=== PATIENT | female | born 1965 | race Caucasian/White ===

== ENCOUNTER 2017-01-25 07:11 | Day surgery (SDC) | payer OTHER ==
[~2017-01-25] VITALS: Ht 157.5 cm; Wt 124.0 kg
[2017-01-25] VITALS (9 sets, daily range): BP systolic 115–156; BP diastolic 58–100; PULSE 80–132; RESP 15–24; O2SAT 93–97
[2017-01-25] MEDS: Lactated Ringer's 1,000 ML IV SCH ×3 (05:00→09:42)
[~2017-01-25 07:11] MED LIST: ADV100INH IH; CeFAZolin Inj 2 GM in IV Premix 1 EACH IV ONE; FLUT16SP NS; MEDR10TA PO; TRAZ-118 PO
[2017-01-25] MEDS ORDERED: Ondansetron 2 mg/mL 2 mL Inj ONE ×2 (07:12)
[2017-01-25] MEDS ORDERED: Rocuronium 10 mg/mL 5 mL Inj ONE ×2 (07:12)
[2017-01-25] MEDS ORDERED: Dexamethasone 4 mg/mL Inj ONE ×2 (07:12)
[2017-01-25] MEDS ORDERED: Propofol 10,000 mCg/mL 20 mL Inj ONE (07:12)
[2017-01-25] MEDS ORDERED: Propofol 10,000 mCg/mL 100 mL Inj ONE (07:12)
[2017-01-25] MEDS ORDERED: Remifentanil 1 mg/3 mL Inj ONE (07:12)
[2017-01-25] MEDS ORDERED: fentaNYL-PF 50 mCg/mL 2 mL Inj ONE (07:12)
[2017-01-25] MEDS ORDERED: Morphine PF 1 mg/mL 10 mL Inj ONE (07:12)
[2017-01-25] MEDS ORDERED: ALBU18HF INH (07:37)
[2017-01-25] MEDS ORDERED: CeFAZolin Inj 3 Gm/ D5W 50 mL Bag IV ONE (07:39)
[2017-01-25 08:13] LABS: BASOPHILS % (AUTO) 0.1 % (0-3); MONOCYTES % (AUTO) 5.6 % (4-12); Mean Corpuscular Hemoglobin 30.7 pg (27.0-35.0); Mean Corpuscular Volume 89.9 fL (81-100); NEUTROPHILS % (AUTO) 61.7 % (40-74); Platelet Count 264 bil/L (150-400)
[2017-01-25] MEDS ORDERED: Lidocaine 1%/Epi 1:100,000 30 mL MDV INFILTRATE ONE (10:00)
[2017-01-25] MEDS ORDERED: Lactated Ringer's 1,000 ML IV SCH (12:12)
[2017-01-25] MEDS ORDERED: Lactated Ringer's 500 ML IV PRN (12:12)
[2017-01-25] MEDS ORDERED: Phenylephrine 10,000 mCg/mL Inj IVPUSH PRN (12:15)
[2017-01-25] MEDS ORDERED: fentaNYL-PF 50 mCg/mL 2 mL Inj IVPUSH PRN (12:15)
[2017-01-25] MEDS ORDERED: Labetalol 5 mg/mL 4 mL Inj IV PRN (12:15)
[2017-01-25] MEDS ORDERED: EPHEDrine Sulfate 50 mg/mL Inj IVPUSH PRN (12:15)
[2017-01-25] MEDS ORDERED: Dexamethasone 4 mg/mL Inj IVPUSH PRN (12:15)
[2017-01-25] MEDS ORDERED: Atropine 0.4 mg/mL Inj IVPUSH PRN (12:15)
[2017-01-25] MEDS ORDERED: Ondansetron 2 mg/mL 2 mL Inj IVPUSH PRN ×2 (12:15→15:50)
[2017-01-25] MEDS ORDERED: HYDROmorphone 1 mg/mL Inj IVPUSH PRN (12:15)
[2017-01-25] MEDS ORDERED: MetoCLOpramide 5 mg/mL 2 mL Inj IVPUSH PRN (12:15)
--- NOTE | 2017-01-25 12:17 | PCM.HPANE ---
Patient Data Surgeon Admitting Provider: Attending Provider:India Hubbard MD Primary Care Physician:Kehinde Richardson MD Other Provider:[place] Anest[facility] Reason for Visit Abnormal Uterine Bleeding Ht/WT & BMI Height (Feet): 5 Height (Inches): 2.5 Weight (Kilograms): 123.3 Body Mass Index 48.00 Allergies Coded Allergies: No Known Allergies (Unverified Allergy, Unknown, 05/14/16) Past Anesthesia History Anesthesia History: Positive for:: Anesthesia Reactions (PONV), Denies:: Fam Anesthesia Reaction (grandmother had difficulty rousing), Fam Malignant Hypertherm, Malignant Hyperthermia Diabetes History Hx Diabetes?: No MRSA MRSA: No Medications Home Meds Incl Beta Opal: No Reported Medications Albuterol Sulfate (Ventolin HFA Inhaler)200 Puff/18 Gm Inhaler1 Puff INH Q4 PRN For Wheezing #1 INHALER Ref 0 01/25/17 Trazodone 100 Mg [id number] Mg PO HS Ref 0 01/24/17 Medroxyprogesterone Acetate (Provera)10 Mg Vfiypd82 Mg PO DAILY 01/24/17 Fluticasone Propionate (Fluticasone Propionate Nasal)16 Gm Mumford.susp1 Mumford NS BID #16 GM Ref 0 01/24/17 Fluticasone/Salmeterol (Advair 100-50 Diskus)60 Puffs/Inh Disk1 Puffs IH BID #1 DISK Ref 0 01/24/17 Discontinued Reported Medications Ibuprofen 600 Mg Ojqjxh589 Mg PO QID PRN For Pain Ref 0 05/14/16 Ferrous Sulfate, Dried (Iron)Unknown Strength Tablet.er159 Mg PO DAILY 05/14/16 Cetirizine Unknown Strength Tablet5 Mg PO HS PRN ALLERGIES Ref 0 05/14/16 Alprazolam (Xanax)0.5 Mg Tablet0.5 Mg PO TID PRN For Anxiety Ref 0 05/13/16 Fluticasone/Salmeterol (Advair 100-50 Diskus)60 Puffs/Inh Disk1 Puffs IH BID #1 DISK Ref 0 05/13/16 Discontinued Scripts Medroxyprogesterone 10 Mg Fluczq42 Mg PO DAILY #9 TABLET Prov:Anurag Guerrero S DO 05/02/16 History History of ENT Problems?: No HEENT History: Denies:: Cataracts Dysphagia Hearing Problem Sinus Problem Denture Type: None Teeth Condition: Within Normal Limits Hx of Heart Problems?: Yes Cardiovascular History: Positive for:: Irregular Heartbeat Denies:: Cardiac Surgery Chest Pain Congestive Heart Failure Edema Heart Murmur Hypertension Pacemaker Hx of Respiratory Problem?: Yes Respiratory History: Positive for:: Asthma (exercise induced) Use of C-PAP Machine Use of Inhalers / NEBS Denies:: COPD Emphysema Oxygen Administration Pneumonia Pulmonary Embolism Tuberculosis Hx Neurologic Problems?: No Neurological History: Denies:: CVA Dizziness Headaches Multiple Sclerosis Parkinson's Disease Seizures Hx of GI Problems?: Yes Hx of Problems?: No Genitourinary History: Denies:: HX of Hemodialysis Kidney Stones Urinary Tract Infection HX of Peritoneal Dialysis: No Female Hx: Denies:: Currently (neg preg test) Problems with Breasts? Skin History: Denies:: History Skin Disorders? Pressure Ulcers Hx Musculoskeletal Problems?: No Musculoskeletal History: Denies:: Back Injury Joint Replacement Musculoskeletal Trauma Hx of Psycho/Social Problems?: No Psycho Social History: Denies:: Anxiety Bipolar Disorder Hx Depression (past hx after lost child) Hx Surgeries?: Yes (tonsils, lap band, lap tram, hysteroscopy) Hx Any Other Health Problems?: Yes Other History: Positive for:: Hospitalization (childbirth) Denies:: Cancer Endocrine Disease Thyroid Disease History Blood Transfusions: Denies:: Blood Transfusions Hx Diabetes: No Hx Alcohol Use: YesAlcoholic Drinks Per Day: occasionalHx Substance Use: No Smoking Status: Never Smoker Have You Smoked inLast 12 mo: No Stop/Bang S-Snoring: Do You Snore Loudly: No T-Tired: feel tired, fatigued: Yes O-Obsered: Observed not breath: Yes P-Blood Pressure: treated: No B- Body Mass Index > 35 kg/m2: Yes A- Age over 50: No N- Neck Large Circumference: Yes G- Gender Male: No EDNA Total Score: 4 Risk Assessment Category Category 1A: Patient has history of documented sleep apnea, and HAS NOT received any narcotic, sedative or anesthesia administration during this stay. Category 1B: Patient has history of documented sleep apnea, and HAS received any narcotic , sedative or anesthesia administration during this stay Category 2: Patient has SUSPECTED Obstructive Sleep Apnea, and HAS received any narcotic , sedative or anesthesia administration during this stay. Category 3: Patient has SUSPECTED Obstructive Sleep Apnea and HAS NOT received narcotic, sedative or anesthesia administration during this stay. Category 4: Outpatient in Procedural Areas with known sleep apnea or who screen positive for High Risk via the STOP/BANG questionnaire. Exam Exam Vital Signs Vital Signs Date Time Temp Pulse Resp B/P Pulse Ox O2 Delivery O2 Flow Rate FiO2 01/25/17 07:47 CPAP/BIPAP 01/25/17 07:44 35.5 80 17 156/91 97 Room Air General Appearance: Alert, Oriented X3, Cooperative, No Acute Distress HEENT/AIRWAY: MP 2 Lungs: Clear to Auscultation, Normal Air Movement Heart: Exam Unremarkable, Regular Rate/Rhythm, No Murmurs/Rubs/Gallops Meds/Labs/Diagnostics Admission Meds Current Medications Lactated Ringer's (Lr) 1,000 ml @ 120 mls/hr Q8H20M IV Last administered on 07:28; Start 01/25/17 at 05:00; Stop 01/25/17 at 13:19 Scopolamine (Transderm-Scop Patch) 1.5 mg ONCE ONCE TOPICAL Last administered on 01/25/17 08:15; Start 01/25/17 at 08:10; Stop 01/25/17 at 08:22; Status DC Labs Test 01/25/17 08:08 White Blood Count 8.5th/mm3 (3.8-10.1) Red Blood Count 4.46mil/mm3 (3.90-5.20) Hemoglobin 13.7g/dL (12.0-15.6) Hematocrit 40.1% (35.0-46.0) Mean Corpuscular Volume 89.9fL (81-100) Mean Corpuscular Hemoglobin 30.7pg (27.0-35.0) Mean Corpuscular Hemoglobin Concent 34.2% (32.0-37.0) Red Cell Distribution Width 13.4% (12.3-15.4) Platelet Count 264bil/L (150-400) Neutrophils (%) (Auto) 61.7% (40-74) Lymphocytes (%) (Auto) 30.1% (14-46) Monocytes (%) (Auto) 5.6% (4-12) Eosinophils (%) (Auto) 2.0% (0-5) Basophils (%) (Auto) 0.1% (0-3) Plan Impression Patient chart reviewed, patient interviewed and anesthestic plan with risks, benefits, and alternatives discussed, and informed consent obtained. ASA Physical Status: ASA3 Severe Disease Anesthetic Plan: GA, SAB Bene/Risks/Altern/Consents: Yes HP Complete Prior to Induction: Yes Other duramorph SAB for post op analgesia per surgeon request Justin Avila MD January 25, 2017 09:07
--- NOTE | 2017-01-25 15:50 | PCM.ANEP1 ---
Post Anesthesia Phase 1 PACU Phase 1 Assessment Vital Signs Vital Signs Date Time Temp Pulse Resp B/P Pulse Ox O2 Delivery O2 Flow Rate FiO2 01/25/17 15:41 36.6 132 22 139/73 93 Nasal Cannula 6 Anesthetic Administered: GA Level of Alertness: Awake, talking CASTELAN's with Equal Strength: Yes Pain: Yes Pain Scale Score: 4 Nausea or Vomiting: No Oxygen Delivery: Room Air Lungs: Clear to Auscultation, Normal Air Movement Dermatome Level: T12 (Symphysis Pubis) Complications: No Patient Instructions Provided: Yes Justin Avila MD January 25, 2017 15:50
[2017-01-25 16:11] LABS: BASOPHILS % (AUTO) 0.1 % (0-3); EOSINOPHILS % (AUTO) 0 % (0-5); Mean Corpuscular Volume 91.4 fL (81-100); NEUTROPHILS % (AUTO) 89.9 % (40-74); Platelet Count 313 bil/L (150-400)
[2017-01-25] MEDS: oxyCODONE-Acetamin 5-325 mg Tablet PO PRN ×2 (18:02→23:37)
[2017-01-26 00:30] VITALS: BP 92/60; PULSE 72; RESP 18; O2SAT 96
--- NOTE | 2017-01-26 04:24 | OP ---
[address] [address] OPERATIVE REPORT PATIENT: KYLIE HOLDER : 1965 MR#: [id number] ADMIT: 01/25/2017 JOB ID: [id number] DATE OF SURGERY: 01/25/2017 SURGEON: India Hubbard MD. CONVERTIBLE TOP INSTALLER: Jen Villegas MD PREOPERATIVE DIAGNOSIS(ES): A 51-year-old female, irregular heavy vaginal bleeding, failed conservative management, not a good candidate for endometrium ablation. POSTOPERATIVE DIAGNOSIS(ES): A 51-year-old female, irregular heavy vaginal bleeding, failed conservative management, not a good candidate for endometrium ablation. PROCEDURE: 1. Laparoscopic total hysterectomy. 2. Bilateral salpingectomy. 3. Cystoscopy. INDICATION FOR THE PROCEDURE: Same as above. This is a 51-year-old female. She started to have heavy vaginal bleeding since April last year. At that time, emergency D and C was done and was placed on progesterone p.o. which could not completely control her bleeding. She also tried Depo-Provera injections and that was not improving her symptoms. Mirena IUD was placed for three months and the bleeding also was not controlled. During the D and C, it was noticed her endometrial cavity is about 11 cm which makes her not a good candidate for the available procedure for endometrial ablation. After discussion, plan was made to have a hysterectomy. Although the patient had two vaginal deliveries, during pelvic examination with deep vagina not easy to descend the cervix and narrow vaginal cavity, she is not a good candidate for a vaginal hysterectomy. The plan was made to have laparoscopic hysterectomy. Discussed about removing bilateral tubes. The patient would like to keep both ovaries if they look normal. The patient understood there is risk of infection, bleeding, injury to the organs around the uterus including but not limited to the bladder, ureters, major vessels, nerves, and bowels. She understood the risk of open procedure if the whole procedure could not be completed by laparoscopy. Informed consent signed. PROCEDURE IN DETAIL: The patient was transferred to the operating room. After general anesthesia was noted to be adequate, she was placed in dorsal lithotomy position. She was prepared and draped in normal sterile fashion. Speculum inserted into her vagina to expose the cervix. The cervix was grasped by single-tooth tenaculum. The cervical os was gently dilated and a small Vcare was placed for manipulation. Jones catheter inserted for urine drainage. At this time, the attention was transferred to her abdomen. A Veress needle was placed at the umbilical area. After confirmed appropriate insertion into her peritoneum, pneumoperitoneum performed. At this time, the Veress needle removed and an 11 mm incision placed in her umbilical area. The 11 mm trocar placed. The pelvic cavity and abdominal cavity was examined. No significant abnormal findings. The uterus was mildly enlarged. Bilateral tubes and ovaries appeared to be normal. Then, two 5 mm incisions were placed on both lower abdomen. At this time probe was used to try to remove the bowels up to her upper abdomen, partially achieved but still had bowel around this area. A fourth incision was placed for easier to perform the procedure with extra instruments, especially to protect the bowels. The left mesosalpinx was grasped, coagulated and cut with Thunderbeat instrument gradually from the fimbria area towards proximal to the uterus. Then, the ovarian uterine ligament was clamped, coagulated, and transected in multiple steps with Thunderbeat. The left round ligament was clamped, coagulated, transected in steps. Then, the broad ligament was brought down in steps, too, with Thunderbeat. The posterior broad ligament was also gently brought down with direct visualization of the bowel. At this time, the left uterine artery was canalized and then the bladder was tried to be removed lower below the cervix. The left uterine artery was coagulated multiple times, and transected by Thunderbeat. The same procedure was done on the right side. The right side has more difficulty with more thicker ligament and the ovary was closer to the uterus, but it was done without complication. After both uterine arteries were coagulated and transected and also confirmed the bladder was pushed down away from the uterus, the colpotomy was tried to be performed using the Thunderbeat. The anterior portion and part of the posterior portion on the right side was able to be performed by the laparoscopy by Thunderbeat, but then the peritoneum was difficult to maintain due to the moderate obesity and the bowel is covering this area and we felt it was very difficult to continue the colpotomy without injury to the bowels or other organs around. At this time, the decision was made to continue other parts of the procedure to remove the uterus through her vaginal area. At this time, attention was transferred down to her vaginal area. The speculum was inserted into the vagina to expose the cervix. Then, the Vcare was removed and the cervix was grasped by single-tooth tenaculum. The right side of the posterior peritoneum was entered without difficulty. The weighted speculum was inserted into the posterior cul-de-sac. At this time, the Viky clamp was used to clamp and cut and suture ligate the right uterosacral ligament. A couple more steps had to be used by Viky to separate both sides of some connection between the broad ligament and the uterus. Then, the uterus was removed. At this time, we evaluated the difficulty to continue the procedure and decided to continue closing the vaginal cuff laparoscopically. Then, the attention was transferred to abdomen. The vaginal cuff was closed continuously. After the closure, the pelvis was examined. Had good hemostasis achieved. Then, the cystoscopy was performed and the whole urethra and bladder was intact and there was urine that can be seen jetting from both ureters, and the urine is clear. Then, the fascia of the umbilical incision was closed with 0-Vicryl in [id number]-nkhct stitches. The four incisions then were closed with 4-0 Monocryl subcutaneously. Dermabond was placed on the surface. The procedure took about 5 hours. The patient tolerated the procedure well. EBL during the procedure was about 200 cc. Urine output 300 cc. The patient was transferred to recovery room in a stable condition. MANISH
[2017-01-26 05:15] VITALS: BP 110/65; PULSE 83; RESP 20; O2SAT 95
[2017-01-26] MEDS: oxyCODONE-Acetamin 5-325 mg Tablet PO PRN (05:49)
[2017-01-26] MEDS ORDERED: Fluticasone-Salmeterol 100-50 Inhaler INHALATION SCH (08:30)
--- NOTE | 2017-01-26 08:30 | PCM.DIGYN ---
Surgical Discharge Instruction Dates of Hospitalization Date of Hospital Admission Providers Admitting Physician: Primary Care Physician: Kehinde Richardson MD Attending Physician: India Hubbard MD Diagnosis at Time of Discharge Diagnosis at time of discharge Heavy vaginal bleeding, not responding to conservative management s/p TLH and b/l salpingectomy POD1 Post-operative diagnosis Heavy vaginal bleeding, not responding to conservative management s/p TLH and b/l salpingectomy POD1 Problems: Diet Discharge Diet: No restrictions Activity Discharge Activity-General: Try not to overdue, Be up and about, Balance rest and activity, Activity as pain allows, No lifting >10 pounds for 4-6 weeks, No driving while taking narcotic Dressing and Incisional Care Hygiene: May shower, NO bathtub, hot tub or whirlpool Additional Instructions Discharge Instructions Please call office if heavy vaginal bleeding, severe abdominal pain, foul smelling discharge, fever more than 100.4 or short of breath. Nothing in vagina for the next 6 weeks follow up office in 2 weeks. Follow Up Plan Follow Up Plan 2 and 6 weeks Follow-up Provider (F9): India Hubbard MD Follow-up appointment: Weeks (2) Call your provider for: Fever, Chills, Shortness of breath, Vomitting, Drainage at incision, Heavy vaginal bleeding, Wound redness, Increasing pain India Hubbard MD January 26, 2017 08:30
--- NOTE | 2017-01-26 08:55 | DIS ---
[address] [address] DISCHARGE SUMMARY PATIENT: KYLIE HOLDER : 1965 MR#: [id number] ADMIT: 01/25/2017 JOB ID: [id number] DIS: HISTORY OF PRESENT ILLNESS: This is a 51-year-old female. She is para 2 presented to the hospital for planned total laparoscopy, hysterectomy, bilateral salpingectomy for heavy irregular vaginal bleeding not responding to conservative management. The patient tolerated the procedure well. She is also doing well overnight. Her pain is controlled by p.o. medication. She tolerates clear fluid diet. She has no other complaints. PHYSICAL EXAMINATION: Her vitals stable. Her pulse in normal range. Blood pressure in normal range. She is afebrile. Cardiac no murmur. Pulmonary bilaterally clear. Abdomen soft, appropriately tender. Incision clean and dry. Minimal bleeding was noticed on the pad. Extremities nontender. Urine output overnight was appropriate. ASSESSMENT AND PLAN: A 51-year-old female status post total abdominal hysterectomy and bilateral salpingectomy postoperative day 1, doing well. Plan for today: We will remove her Jones catheter. Encourage voiding. Encouraged to start regular diet. Encouraged ambulate. Anticipating discharging her home today when she could void well, pain still well controlled and tolerated diet. Instructions given that if there is heavy vaginal bleeding, severe abdominal pain, foul-smelling discharge, fever more than 100.4, shortness of breath, she needs to call the office or go to the ER for evaluation. She is instructed to make appointment in 2 weeks and for 6 weeks after the procedure for follow up. Percocet 5/325, 40 pills and Motrin 600 mg 40 pills prescribed for pain management.
[2017-01-26 09:43] VITALS: BP 115/74; PULSE 89; RESP 18; O2SAT 96
--- NOTE | 2017-01-28 18:08 | PATH ---
SURGICAL PATHOLOGY Attending Physician:India Hubbard MD CASE STATUS: Signed Out PATIENT NAME: KYLIE HOLDER PID: [id number] : 1965 DATE COLLECTED:01/25/2017 00:00 SPECIMEN: Uterus +/- tubes/ovaries, except neoplastic, prolapse CLINICAL HISTORY: ABNORMAL VAGINAL BLEEDING, FAILED CONSERVATIVE MANAGEMENT OF VAGINAL BLEEDING 1). UTERUS WITH BILATERAL FALLOPIAN TUBES FINAL DIAGNOSIS: Uterus With Bilateral Fallopian Tubes, Total Hysterectomy With Bilateral Salpingectomy (Weight 168 grams): Cervix with no significant histomorphologic abnormality. Endocervix with no significant histomorphologic abnormality. Weakly proliferative endometrium; negative for cytologic atypia, glandular hyperplasia, and malignancy. Myometrium with involvement by adenomyosis. Serosa with two subserosal leiomyomas (1.5 and 2.0 cm in greatest dimension). Right and left fallopian tubes with no significant histomorphologic abnormality. ICD10: N94.6 GROSS DESCRIPTION: Specimen received in formalin, labeled "uterus with bilateral fallopian tubes". Specimen consists of a total hysterectomy with bilateral salpingectomy weighing 168 grams and it measures 10.0 cm superior to inferior, 6.5 cm lateral to lateral, and 5.0 cm anterior to posterior. The right fimbriated fallopian tube is completely detached measuring 4.5 cm in length by 0.7 cm in diameter, and the left fallopian tube measures 6.0 cm in length by 0.6 cm in diameter. The exocervix measures 2.5 x 1.8 cm and a slit-like os measures 1.0 cm. The cervix is covered by a cleary to red-starkey, smooth, glistening mucosa. Endocervical canal measures 2.2 cm in length and it has an unremarkable mucosa. Endometrial cavity measures 3.0 cm cornu to cornu and 5.5 cm in length. Endometrial lining is red-starkey and it is ranging from 0.5 to 1.0 cm in maximum thickness. The myometrium measures 2.0 cm in maximum thickness. The anterior aspect of the serosal surface shows subserosal fibroid-like structure measuring 1.5 cm in diameter and at the posterior aspect, there is a 2.0 cm subserosal fibroid-like structure. The remainder of the serosal surface is smooth and glistening with multiple areas of surgical defects. International Nurse sections submitted as follows: cassette #1A-anterior cervix; cassette B-anterior lower uterine segment; cassettes C and D-anterior uterine wall, full thickness including endometrium, myometrium and serosal surface; cassette E-posterior cervix; cassette F-posterior lower uterine wall; cassettes G and H-posterior uterine wall full thickness including endometrium, myometrium and serosal surface; cassettes I, J and K-right fallopian tube; cassettes L, M and N-entire left fallopian tube. ([id number]) ICD-9 CODES: CPT CODES: 1: 16817 Electronically Signed Out Jaleesa Ramirez MD [facility] Pathology [facility] [address], [place] [address] Technical component performed at [facility], [address] [place] [address] [address], [place], [address]
== END 2017-01-26 13:15 | disposition home or self-care (01) ==
LOC: SAS 07:11 → OSC 16:40 → SAS 01-26 13:15
PROVIDERS: ATTEND Obstetrics & Gynecology
DX: D25.2 Subserosal leiomyoma of uterus (principal); N93.9 Abnormal uterine and vaginal bleeding, unspecified; J45.990 Exercise induced bronchospasm; Z79.899 Other long term (current) drug therapy